=== PATIENT | female | born 1950 | race Native Hawaiian/Other Pacific Islander ===

== ENCOUNTER 2019-12-02 07:44 | Day surgery (SDC) | payer OTHER ==
[~2019-12-02] VITALS: Ht 2.5 cm; Wt 0.0 kg
== END 2019-12-02 09:27 | disposition home or self-care (01) ==
LOC: OR 07:44
PROC: 3E0R33Z Introduction of Anti-inflammatory into Spinal Canal, Percutaneous Approach (ICD-10-PCS; principal; 2019-12-02)
PROC: B01BYZZ Fluoroscopy of Spinal Cord using Other Contrast (ICD-10-PCS; 2019-12-02)
DX: M50.123 Cervical disc disorder at C6-C7 level with radiculopathy (principal); M50.122 Cervical disc disorder at C5-C6 level with radiculopathy
CPT/HCPCS: J1020

== ENCOUNTER 2020-03-28 08:08 | Day surgery (SDC) | payer OTHER ==
[~2020-03-28] VITALS: Ht 30.5 cm; Wt 0.5 kg
== END 2020-03-28 09:34 | disposition home or self-care (01) ==
LOC: OR 08:08
PROC: 3E0R33Z Introduction of Anti-inflammatory into Spinal Canal, Percutaneous Approach (ICD-10-PCS; principal; 2020-03-28)
PROC: B01BYZZ Fluoroscopy of Spinal Cord using Other Contrast (ICD-10-PCS; 2020-03-28)
DX: M50.122 Cervical disc disorder at C5-C6 level with radiculopathy (principal)
CPT/HCPCS: J1020